=== PATIENT | male | born 1940 | race Two or more races ===

== ENCOUNTER 2024-01-25 12:56 | Observation (INO) | payer OTHER, BC ==
[2024-01-25 17:23] LABS: VENOUS BASE EXCESS 1.1 mmol/L (-2-2); VENOUS O2 SATURATION 22.5 % (70-80); VENOUS PCO2 56.9 mmHg (38-52); VENOUS PH 7.314 (7.310-7.410)
[2024-01-25 17:24] LABS: BASO % 1.3 % (0-2.0); EOS % 4.9 % (0-4.5); HEMATOCRIT 36.5 % (35.4-49); HEMOGLOBIN 11.3 GM/dL (11.7-16.9); LYMPH % 9.7 % (8-40); MCH 28.9 pg (25.7-33.7); MEAN CELL VOLUME 93.3 fl (80-96); MEAN PLT VOLUME 11.2 fl (7.5-11.1); MONO % 11.8 % (3.8-10.2); NEUT % 72.3 % (42.8-82.8); PLATELET COUNT 101 10^3/uL (134-434); RBC 3.91 M/mm3 (4.00-5.60); RDW 16.7 % (11.9-15.9); WHITE BLOOD COUNT 3.6 K/mm3 (4.0-10.0)
[2024-01-25 17:40] LABS: POTASSIUM 4.8 mmol/L (3.5-5.1)
[2024-01-25 17:43] LABS: ALBUMIN 3.3 g/dl (3.4-5.0); BLOOD UREA NITROGEN 25.1 mg/dL (7-18); CALCIUM 8.8 mg/dL (8.5-10.1); MAGNESIUM 2.1 mg/dL (1.8-2.4)
[2024-01-25 17:46] LABS: CREATININE 3.6 mg/dL (0.55-1.3)
[2024-01-25 17:47] LABS: BILIRUBIN,TOTAL 0.6 mg/dL (0.2-1); TOT PROT 6.7 g/dl (6.4-8.2)
[2024-01-26 05:21] VITALS: BMI 20.1
[2024-01-26] MEDS: INSULIN ASPART SLIDING SCALE (NOVOLOG) 1 VIAL SQ SCH (06:46)
[2024-01-26] MEDS: GABAPENTIN 100 MG CAPSULE PO SCH (06:47)
[2024-01-26] MEDS: INSULIN (LEVEMIR) 100 UNITS/ML UNITS SQ SCH (06:51)
[2024-01-26] MEDS ORDERED: INSULIN (LEVEMIR) 100 UNITS/ML UNITS SQ SCH (07:00)
[2024-01-26] MEDS: TAMSULOSIN HCL 0.4 MG CAP PO SCH (09:18)
[2024-01-26 09:32] LABS: BASO % 0.8 % (0-2.0); HEMATOCRIT 37.2 % (35.4-49); HEMOGLOBIN 11.4 GM/dL (11.7-16.9); LYMPH % 14.6 % (8-40); MCH 28.6 pg (25.7-33.7); MCHC 30.7 g/dl (32.0-35.9); MEAN CELL VOLUME 93.1 fl (80-96); MEAN PLT VOLUME 11.6 fl (7.5-11.1); MONO % 10.3 % (3.8-10.2); NEUT % 67.3 % (42.8-82.8); PLATELET COUNT 116 10^3/uL (134-434); RBC 3.99 M/mm3 (4.00-5.60); RETICULOCYTES 1.33 % (0.5-1.5); WHITE BLOOD COUNT 3.8 K/mm3 (4.0-10.0)
[2024-01-26 09:50] LABS: POTASSIUM 4.3 mmol/L (3.5-5.1)
[2024-01-26 09:55] LABS: ALBUMIN 3.3 g/dl (3.4-5.0); BLOOD UREA NITROGEN 38.8 mg/dL (7-18); MAGNESIUM 2.2 mg/dL (1.8-2.4)
[2024-01-26 09:57] LABS: PHOSPHOROUS 3.8 mg/dL (2.5-4.9)
[2024-01-26 09:58] LABS: CREATININE 4.6 mg/dL (0.55-1.3)
[2024-01-26 09:59] LABS: BILIRUBIN,TOTAL 0.7 mg/dL (0.2-1); TOT PROT 6.7 g/dl (6.4-8.2)
[2024-01-26] MEDS: FINASTERIDE 5 MG TABLET (FP) PO SCH (10:18)
[2024-01-26] MEDS: APIXABAN 2.5 MG TABLET PO SCH (10:19)
[2024-01-26] MEDS: amLODIPine BESYLATE 5 MG TABLET (FP) PO SCH (10:38)
[2024-01-26] MEDS: hydrALAZINE HCL 50 MG TABLET (FP) PO SCH (10:38)
[2024-01-26] MEDS ORDERED: SODIUM CHLORIDE 250 ML IV PRN (11:58)
[2024-01-26 12:06] VITALS: RESP 18
[2024-01-26] MEDS: ATORVASTATIN CA 40 MG TABLET (FP) PO SCH (21:26)
[2024-01-27] MEDS: INSULIN ASPART SLIDING SCALE (NOVOLOG) 1 VIAL SQ SCH (06:01)
[2024-01-27 09:09] LABS: HEMATOCRIT 37.7 % (35.4-49); HEMOGLOBIN 11.5 GM/dL (11.7-16.9); MCH 28.5 pg (25.7-33.7); MCHC 30.5 g/dl (32.0-35.9); MEAN CELL VOLUME 93.4 fl (80-96); MEAN PLT VOLUME 11.2 fl (7.5-11.1); PLATELET COUNT 128 10^3/uL (134-434); RBC 4.03 M/mm3 (4.00-5.60); RDW 17.2 % (11.9-15.9); WHITE BLOOD COUNT 4.3 K/mm3 (4.0-10.0)
[2024-01-27 09:30] LABS: POTASSIUM 5.7 mmol/L (3.5-5.1)
[2024-01-27 09:34] LABS: ALBUMIN 2.7 g/dl (3.4-5.0); BLOOD UREA NITROGEN 54.3 mg/dL (7-18); CALCIUM 8.3 mg/dL (8.5-10.1)
[2024-01-27 09:38] LABS: CREATININE 5.6 mg/dL (0.55-1.3)
[2024-01-27 09:39] LABS: BILIRUBIN,TOTAL 0.6 mg/dL (0.2-1); TOT PROT 5.9 g/dl (6.4-8.2)
[2024-01-28 06:13] VITALS: TEMP 97.7
[2024-01-28] MEDS ORDERED: INSULIN ASPART SLIDING SCALE (NOVOLOG) 1 VIAL SQ ONE (07:33)
[2024-01-28 09:55] VITALS: BP 146/50; PULSE 63
== END 2024-01-28 11:59 | disposition home or self-care (01) ==
LOC: JER 12:56 → JERBED 21:20 → UNDOADMOB 21:20 → INTOOBSV 21:20 → J5S 01-26 05:06 → JERBED 01-26 05:06 → J5S 01-26 09:29
PROVIDERS: ADMIT Internal Medicine; ATTEND Internal Medicine
PROC: 3E013VG Introduction of Insulin into Subcutaneous Tissue, Percutaneous Approach (ICD-10-PCS; principal; 2024-01-26)
DX: R41.82 Altered mental status, unspecified (principal); N18.6 End stage renal disease; Z99.2 Dependence on renal dialysis; Z96.89 Presence of other specified functional implants; Q68.1 Congenital deformity of finger(s) and hand; E11.9 Type 2 diabetes mellitus without complications; Z79.4 Long term (current) use of insulin; G62.9 Polyneuropathy, unspecified; G92.8 Other toxic encephalopathy; R41.3 Other amnesia; R77.8 Other specified abnormalities of plasma proteins; Z91.09 Other allergy status, other than to drugs and biological substances; Z87.891 Personal history of nicotine dependence
CPT/HCPCS: 0241U-QW; 36415; 70450-TC; 70551-TC; 71045-TC-FY; 80053; 82140; 82607; 82728; 82803; 82962; 83036; 83540; 83550; 83735; 84100; 84439; 84443; 84466; 84484; 85025; 85027; 85045; 86704; 86780; 86803; 86850; 86900; 86901; 87340; 87517; 93005; 93010; 93306-TC; 96372; 97116-GP; 97161-GP; 99285-25; G0378